=== PATIENT | male | born 1970 | race Caucasian/White ===

== ENCOUNTER 2016-09-07 22:28 | Emergency (ER) | payer OTHER | END 2016-09-08 00:20 | disposition home or self-care (01) | LOC: ER 22:28 | DX: M54.5 Low back pain (principal); R20.9 Unspecified disturbances of skin sensation; I10 Essential (primary) hypertension; Z87.891 Personal history of nicotine dependence; V49.9XXA Car occupant (driver) (passenger) injured in unspecified traffic accident, initial encounter; Z79.84 Long term (current) use of oral hypoglycemic drugs ==